=== PATIENT | male | born 1945 | race Caucasian/White ===

== ENCOUNTER 2016-04-10 11:22 | Day surgery (SDC) | payer OTHER ==
[2016-04-03 09:55] VITALS: BMI 21.0
--- NOTE | 2016-04-03 10:35 | PAT Medication Instructions ---
Service Date Apr 03, 2016. Current Home Medication List Amlodipine (Norvasc), 10 MG PO QAM Aspirin (Aspirin Ec), 81 MG PO NOON B-Complex W/ C & Folic Acid (Dialyvite 800), 1 TAB PO QAM Doxazosin Mesylate (Cardura), 4 MG PO HS Enalapril (Vasotec), 20 MG PO BID Folic Acid (Folvite), 1 MG PO QAM Pantoprazole (Protonix), 20 MG PO QAM Medication Instructions For Your Scheduled Surgery - Check with surgeon for instructions: Aspirin (Aspirin Ec), 81 MG PO NOON - Hold the following medications the morning of surgery: Folic Acid (Folvite), 1 MG PO QAM Enalapril (Vasotec), 20 MG PO BID B-Complex W/ C & Folic Acid (Dialyvite 800), 1 TAB PO QAM - Take the following medications the morning of surgery with a sip of water: Pantoprazole (Protonix), 20 MG PO QAM Amlodipine (Norvasc), 10 MG PO QAM - Hold the following medications as scheduled the night before surgery: Enalapril (Vasotec), 20 MG PO BID - Take the following medications as scheduled the night before surgery: Doxazosin Mesylate (Cardura), 4 MG PO HS If you have any questions please call us at [phone] (Jayla Cantu PA-C ) or [phone] or [phone]
[2016-04-03 11:32] LABS: BASO % 0.3 %; BASO ABS # 0.01 K/uL (0-0.2); EOS % 3.6 %; HEMATOCRIT 21.5 % (42-52); IG% 0.3 %; LYMPH % 23.9 %; MEAN CELL VOLUME 89.2 fL (80-100); MEAN CORPUSCULAR HEMOGLOBIN 30.3 pg (25-34); NEUT % 62.9 %; PLATELET COUNT 116 K/uL (130-400); RED BLOOD COUNT 2.41 M/uL (4.7-6.1); WHITE BLOOD COUNT 3.35 K/uL (4.8-10.8)
--- NOTE | 2016-04-03 11:36 | DIAGNOSTIC IMAGING REPORT ---
TWO VIEW CHEST CLINICAL HISTORY: Preoperative examination. FINDINGS: PA and lateral chest radiographs are obtained. No prior studies are available for comparison at the time of dictation. A right-sided central venous catheter is in place. The tip projects over the cavoatrial junction. Surgical clips project over the left apex. The heart is enlarged and there is atherosclerotic calcification of the thoracic aorta. The pulmonary vasculature is noncongested. Emphysema is suspected. Interstitial thickening is nonspecific. A trace right pleural effusion is noted. The right lung is otherwise grossly clear. There is volume loss in the left lung, with significant parenchymal abnormality seen in the left perihilar region and left upper lobe. There is associated architectural distortion. Pleural fluid is seen at the left lung base. There is no pneumothorax. The skeletal structures are osteopenic. Mild degenerative change is noted throughout the thoracic spine. IMPRESSION: 1. Cardiomegaly and emphysema. There is no radiographic evidence of congestive failure. 2. There is significant parenchymal abnormality identified in the left perihilar region and left upper lobe with associated volume loss and architectural distortion. This is of indeterminant chronicity. This could be related to previous surgery, infection, and/or neoplasm. Correlation with the patient's medical history and any prior imaging studies will be essential. 3. There are small pleural effusions, left larger than right. Electronically signed by: Shayan Chin M.D. 04/03/2016 11:35 AM
[2016-04-03 11:40] LABS: PARTIAL THROMBOPLASTIN RATIO 0.9; PROTHROMBIN TIME (PATIENT) 10.7 SECONDS (9.0-12.0)
[2016-04-03 11:52] LABS: ACANTHOCYTES 1+; COMPLETE YES
[2016-04-03 12:20] LABS: CALCIUM 7.9 mg/dl (8.5-10.1); CREATININE 5.3 mg/dl (0.60-1.40); POTASSIUM 4.8 mmol/L (3.5-5.1)
[~2016-04-10] VITALS: Ht 182.9 cm; Wt 72.1 kg
--- NOTE | 2016-04-10 06:21 | History and Physical ---
History & Physical CC: End stage renal disease HPI: Mr. Jean-Baptiste is a 70-year-old gentleman who is now on dialysis and in the need of a permanent fistula. He has a PermCath in place in the right internal jugular vein. He has had multiple use of the veins in his both for IV blood draws and chemotherapy. He also had an Infusaport which was placed on the right side of his chest. It is unknown if it was subclavian or internal jugular. He is left-handed. ALLERGIES: He has no upper extremity claudication. ALLERGIES: None known. MEDICATIONS: Amlodipine, aspirin, Cardura, enalapril, folic acid, Protonix and Unagel. PAST MEDICAL HISTORY: Positive for hypertension, non-small cell lung cancer, myelodysplastic syndrome, bleeding ulcer, anemia, BPH and end-stage renal disease. PAST SURGICAL HISTORY: Fusiform insertion. FAMILY HISTORY: Noncontributory. SOCIAL HISTORY: He smoked for 30 years, 1-1/2 packs a day and he quit in 2012. REVIEW OF SYSTEMS: Ten systems were asked. His only positive complaint was prostate problems. PHYSICAL EXAMINATION: The patient is awake, oriented x3. He is on the thin side. He is in no apparent distress. His blood pressure is 138/60 in the left , 134/60 in the right. Head and neck within normal limits, no carotid bruits. Lungs are clear. The heart had a regular rate and rhythm. Abdominal exam is benign. No aneurysmal dilatation was appreciated. Vascular exam was radials, carotids, temporal arteries +2 bilaterally. Femorals are +2 bilaterally. There is normal hair growth on the extremities and there is good capillary refill in both feet. There are no ulcerations of any of his extremities or ischemic changes. Neurologic exam is grossly intact. IMPRESSION: End-stage renal disease. PLAN AND RECOMMENDATIONS: Patient is admitted for left wrist fistula possible basilic vein fistula creation. I have discussed the risks options and benefits of the procedure with the patient. The patient understands the risks options and benefits and agrees to the procedure.
[~2016-04-10 11:22] MED LIST: AMLO-114 PO; ASPI81TA28 PO; ATROPINE SULFATE 0.1 MG/ML 5ML SYR IV PRN; B-CO800T2 PO; CEFAZOLIN 1000MG/55 ML D5W IV SCH; DOXA4TAB2 PO; ENAL10TA88 PO; EpHEDrine SULFATE INJ 50 MG/ML AMP IV PRN; FENTANYL CITRATE INJ 50 MCG/1 ML 2 ML VIAL IV PRN; FOLI1TAB8 PO; ONDANSETRON INJ 2 MG/ML 2 ML VIAL IV PRN; PRT/20 PO; SODIUM CHLORIDE 0.9% 1000ML 1,000 ML IV SCH
[2016-04-10] MEDS ORDERED: PROPOFOL IV EMULSION 10 MG/ML 20 ML VIAL IV ONE (11:30)
[2016-04-10] MEDS ORDERED: FENTANYL CITRATE INJ 50 MCG/1 ML 2 ML VIAL ONE (11:31)
[2016-04-10 11:35] VITALS: BP 181/65; PULSE 77; TEMP 36.7; O2SAT 95; Ht 182.9 cm; Wt 72.1 kg
--- NOTE | 2016-04-10 11:44 | History & Physical Bridge Note ---
H&P Re-Evaluation Bridge Note: I have examined the patient, reviewed the History & Physical and in the interval since the performance of the History & Physical I have noted the following changes of clinical significance: No changes noted
[2016-04-10 12:32] LABS: BUN/CREATININE RATIO 6.4 (10-20); CALCIUM 7.8 mg/dl (8.5-10.1); CREATININE 5.3 mg/dl (0.60-1.40); POTASSIUM 4.2 mmol/L (3.5-5.1)
--- NOTE | 2016-04-10 13:58 | [facility] Post Operative Brief Note ---
Immediate Operative Summary Operative Date Apr 10, 2016. Pre-Operative Diagnosis End-Stage Renal Disease Post-Operative Diagnosis Same as preoperative Procedure(s) Performed Left Wrist Cephalic Vein Arteriovenous Fistula Creation Surgeon Dr. Daniel Meek Seismic Interpreter Surgeon(s) Suellen Ribeiro PA-C Estimated Blood Loss 10ml Findings good thrill Specimens None per surgeon Anesthesia MAC Complication(s) None Disposition Recovery Room / PACU
[2016-04-10] MEDS ORDERED: OXYC-57 PO (14:00)
--- NOTE | 2016-04-10 14:01 | Discharge Instructions ---
Discharge Instructions Visit Reason for Visit: End Stage Renal Disease Discharge Discharge Diagnosis / Problem: End stage renal disease on dialysis Discharge Goals Goal(s): Therapeutic intervention Activity Recommendations Activity Limitations: per Instructions/Follow-up section Anesthesia . Post Anesthesia Instructions: If you have had General Anesthesia or IV Sedation: * Do not drive today. * Resume driving when surgeon permits. * Do not make important decisions or sign legal documents today. * Call surgeon for: 1. Temperature elevations greater than 101 degrees F. 2. Uncontrollable pain. 3. Excessive bleeding. 4. Persistent nausea and vomiting. 5. Medication intolerance (nausea, vomiting or rash). * For nausea and vomiting use only clear liquids such as: tea, soda, bouillon until nausea subsides, then gradually increase diet as tolerated. * If you have any concerns or questions, call your surgeon's office. If physician is unavailable and it is an emergency, call 911 or go to the nearest emergency room. . Instructions / Follow-Up Instructions / Follow-Up Call [phone] to schedule a follow up appointment if one not already scheduled. ACTIVITY RECOMMENDATIONS: See Above SPECIAL CARE INSTRUCTIONS: Call your doctor if: * Temperature above 101 degrees * Pain not relieved by pain medicine ordered * There is increased drainage or redness from any incision * You have any unanswered questions or concerns. Diet Recommendations Recommended Home Diet: resume previous diet Procedures Procedures Performed: Left Wrist Cephalic Vein Arteriovenous Fistula Creation Pending Studies Studies pending at discharge: no Medical Emergencies . Who to Call and When: Medical Emergencies: If at any time you feel your situation is an emergency, please call 911 immediately. . Non-Emergent Contact Non-Emergency issues call your: Surgeon . . "Provider Documentation" section prepared by Daniel Meek.
[2016-04-10] MEDS ORDERED: HEPARIN SOD (PORCINE) 1000 UNIT/ML 10 ML VIAL FLUSH ONE (14:14)
[2016-04-10] MEDS ORDERED: MIX: 0.5% BUPIVACAINE W/EPI 1:200,000+1%LIDO 50:50 INJ ONE (14:14)
--- NOTE | 2016-04-10 14:18 | OPERATIVE REPORT ---
DATE OF OPERATION: 04/10/2016 PREOPERATIVE DIAGNOSIS: End-stage renal disease on dialysis. POSTOPERATIVE DIAGNOSIS: Same. PROCEDURE: Left wrist AV fistula creation using cephalic vein. SURGEON: Dr. Meek. HOSPITAL NURSE LIAISON: Suellen Castaneda PA-C. ANESTHETIC: MAC. PROCEDURE INDICATIONS: The patient is a 71-year-old gentleman with end-stage renal disease on dialysis. He is in need of an access. He was found to have a good basilic vein in the left arm and possibly a cephalic vein at the wrist. We recommended a left wrist AV fistula unless the vein was not usable. Then an antecubital basilic vein AV fistula will be created. He understood the risks, options and benefits and agreed to have this procedure. DESCRIPTION OF PROCEDURE: The patient was taken to operating room and placed in supine position. After the left arm was prepped and draped in a sterile manner, local anesthetic was administered. Longitudinal incision was made along the cephalic vein at the left wrist slightly higher than a normal incision at the very distal end. Cephalic vein was identified. It was of good caliber at that site. More concerning was the mid forearm. We did ligated distally and divided and passed the #3 Alannah up. The #3 Alannah was inflated and came down very easily throughout the entire cephalic vein in the forearm. It was decided then to do the anastomosis. The radial artery was identified at that level. It was approximately 4 fingerbreadths above the wrist crease. The radial artery was then clamped proximally and distally. Longitudinal arteriotomy was then made. The cephalic vein was beveled and end-to-side anastomosis was accomplished. This was done with a running 7-0 Prolene suture in the usual vascular fashion. Prior to completing the closure, backbleeding and forward bleeding was allowed to occur. Final few sutures were placed and securely tied. Clamps were then removed. Excellent flow was seen. There was a palpable thrill in the fistula at the end of the procedure. Adequate hemostasis was noted of the wound. The vein actually dilated up nicely. There were good signals heard of flow through the fistula all the way up through to the antecubital area. The wound was closed in the usual fashion, running 3-0 Vicryl subcutaneous layer and running 4-0 Vicryl subcuticular suture and Dermabond for a dressing. The patient left the operating room in satisfactory condition having tolerated the procedure well. Suellen Castaneda assisted due to lack of resident availability. I attest to the content of the Intraoperative Record and any orders documented therein. Any exceptio ns are noted below.
--- NOTE | 2016-04-10 14:34 | Anesthesiology Progress Note ---
Anesthesia Post Op Note Date & Time Apr 10, 2016 at 14:34 Vital Signs Pain Intensity: 0 Vital Signs Past 12 Hours Date Time Temp Pulse Resp B/P Pulse Ox O2 Delivery O2 Flow Rate FiO2 04/10/16 14:25 62 18 150/59 96 Room Air 04/10/16 14:18 36.7 74 18 155/62 96 Room Air 04/10/16 11:35 36.7 77 20 181/65 95 Room Air Notes Mental Status: alert / awake / arousable, participated in evaluation Pt Amnestic to Procedure: Yes Nausea / Vomiting: adequately controlled Pain: adequately controlled Airway Patency, RR, SpO2: stable & adequate BP & HR: stable & adequate Hydration State: stable & adequate Anesthetic Complications: no major complications apparent
[2016-04-10 14:45] VITALS: BP 160/60; PULSE 63; TEMP 36.7; O2SAT 96
--- NOTE | 2016-04-10 15:35 | Progress Note ---
Progress Note I assisted Dr Meek with Daniel Jean-Baptiste's Left Wrist Cephalic Vein Arteriovenous Fistula Creation on 04/10/16, d/t lack of resident availability.
[2016-09-13] MEDS ORDERED: ATV/1 PO (06:07)
== END 2016-04-10 15:30 | disposition home or self-care (01) ==
LOC: C.ACU 11:22
PROVIDERS: ATTEND Surgery Vascular Surgery
DX: N18.6 End stage renal disease (principal); N40.0 Benign prostatic hyperplasia without lower urinary tract symptoms; I12.0 Hypertensive chronic kidney disease with stage 5 chronic kidney disease or end stage renal disease; Z85.118 Personal history of other malignant neoplasm of bronchus and lung; Z99.2 Dependence on renal dialysis; Z79.82 Long term (current) use of aspirin; Z87.891 Personal history of nicotine dependence

== ENCOUNTER → 2016-09-13 | Day surgery (SDC) | payer OTHER ==
[~2016-09-13] VITALS: Ht 180.3 cm; Wt 66.0 kg
[~2016-09-13] MED LIST changes: -ATROPINE SULFATE 0.1 MG/ML 5ML SYR IV PRN; +ATV/1 PO; +D5W AND 1/4NSS 1000 ML IV SCH; -EpHEDrine SULFATE INJ 50 MG/ML AMP IV PRN; +FENTANYL CITRATE INJ 50 MCG/1 ML 2 ML VIAL IV ONE; -FENTANYL CITRATE INJ 50 MCG/1 ML 2 ML VIAL IV PRN; +FENTANYL CITRATE INJ 50 MCG/1 ML 2 ML VIAL ONE; +FOLI1TAB7 PO; -FOLI1TAB8 PO; +LIDOCAINE HCL 1% 20 ML VIAL INJ ONE; +LIDOCAINE HCL 1% 20 ML VIAL ONE; +MIDAZOLAM HCL 1 MG/ML 2ML VIAL ONE; -ONDANSETRON INJ 2 MG/ML 2 ML VIAL IV PRN; +OXYC-57 PO; +PATIENT'S HEIGHT AND/OR WEIGHT NEEDED SCH; -SODIUM CHLORIDE 0.9% 1000ML 1,000 ML IV SCH
--- NOTE | 2016-09-13 05:58 | History and Physical ---
History & Physical Date of Service Sep 13, 2016. History & Physical CC: Non maturing left arm av fistula HPI: Mr. Jean-Baptiste is a 70-year-old gentleman who had a left wrist av fistula created which is not maturing. Admitted now for a possible BAM procedure and coiling of a large sidebranch. ALLERGIES: He has no upper extremity claudication. ALLERGIES: None known. MEDICATIONS: Amlodipine, aspirin, Cardura, enalapril, folic acid, Protonix and Unagel. PAST MEDICAL HISTORY: Positive for hypertension, non-small cell lung cancer, myelodysplastic syndrome, bleeding ulcer, anemia, BPH and end-stage renal disease. PAST SURGICAL HISTORY: Fusiform insertion. FAMILY HISTORY: Noncontributory. SOCIAL HISTORY: He smoked for 30 years, 1-1/2 packs a day and he quit in 2012. REVIEW OF SYSTEMS: Ten systems were asked. His only positive complaint was prostate problems. PHYSICAL EXAMINATION: The patient is awake, oriented x3. He is on the thin side. He is in no apparent distress. His blood pressure is 138/60 in the left , 134/60 in the right. Head and neck within normal limits, no carotid bruits. Lungs are clear. The heart had a regular rate and rhythm. Abdominal exam is benign. No aneurysmal dilatation was appreciated. Vascular exam was radials, carotids, temporal arteries +2 bilaterally. Femorals are +2 bilaterally. There is normal hair growth on the extremities and there is good capillary refill in both feet. There are no ulcerations of any of his extremities or ischemic changes. Neurologic exam is grossly intact. Good thrill in proximal fistula. IMPRESSION: End-stage renal disease. Non maturing av fistula PLAN AND RECOMMENDATIONS: Patient is admitted for left wrist fistulogram with possible intervention. I have discussed the risks options and benefits of the procedure with the patient. The patient understands the risks options and benefits and agrees to the procedure.
[2016-09-13 06:13] VITALS: BP 173/74; PULSE 76; TEMP 36.9; O2SAT 100; Ht 180.3 cm; Wt 66.0 kg
--- NOTE | 2016-09-13 07:21 | Procedure Note ---
Pre-Mod Sedation Assessment General Date of Moderate Sedation: Sep 13, 2016. Vital Signs: Vital Signs Past 12 Hours Date Time Temp Pulse Resp B/P (MAP) Pulse Ox O2 Delivery O2 Flow Rate FiO2 09/13/16 06:13 36.9 76 18 173/74 (107) 100 Room Air Pre-Sedation Airway Assessment Oral Cavity: Dentures Hx of Sleep Apnea: No Smoking Status: Former Smoker Mallampati Classification: Class I ASA Classification: Class II Notes The planned sedation has been discussed with the patient and consent obtained. I have identified the patient, determined the appropriateness of sedation and have assessed the patient immediately prior to the procedure. All medicine(s) and interventions are by my order.
[2016-09-13 07:23] VITALS: BP 173/74; PULSE 76; TEMP 36.9; O2SAT 100
--- NOTE | 2016-09-13 08:19 | [facility] Post Operative Brief Note ---
Immediate Operative Summary Operative Date Sep 13, 2016. Pre-Operative Diagnosis Non Maturing Fistula Post-Operative Diagnosis Same Procedure(s) Performed Fistulogram, Percutaneous Transluminal Angioplasty Peripheral Venous , Ligation of Side Branch Surgeon Dr. Meek Biometric Technician Surgeon(s) None Estimated Blood Loss 5 Findings good dilatation results Specimens None Anesthesia Local Complication(s) None Disposition
--- NOTE | 2016-09-13 08:21 | Discharge Instructions ---
Discharge Instructions Date of Service Sep 13, 2016. Visit Reason for Visit: Non-Maturing Fistula Discharge Discharge Diagnosis / Problem: Non maturing Arteriovenous fistula Discharge Goals Goal(s): Therapeutic intervention Activity Recommendations Activity Limitations: resume your previous activity Anesthesia . Post Anesthesia Instructions: If you have had General Anesthesia or IV Sedation: * Do not drive today. * Resume driving when surgeon permits. * Do not make important decisions or sign legal documents today. * Call surgeon for: 1. Temperature elevations greater than 101 degrees F. 2. Uncontrollable pain. 3. Excessive bleeding. 4. Persistent nausea and vomiting. 5. Medication intolerance (nausea, vomiting or rash). * For nausea and vomiting use only clear liquids such as: tea, soda, bouillon until nausea subsides, then gradually increase diet as tolerated. * If you have any concerns or questions, call your surgeon's office. If physician is unavailable and it is an emergency, call 911 or go to the nearest emergency room. . Instructions / Follow-Up Instructions / Follow-Up Call [phone] to schedule a follow up appointment if one not already scheduled. SPECIAL CARE INSTRUCTIONS: Medications: * Continue to take your medications as directed. If you have been given a prescription for Plavix, please fill it immediately and take as directed. Incision Care: * Your puncture site may have some bruising and minor swelling for about one week. * You will have a small dressing covering your puncture site. You may remove the dressing after 24 hours and shower. You may let the warm soapy water run over it, but be sure to dry the puncture site well and keep it dry. * DO NOT IMMERSE THE INCISION IN A TUB/POOL/etc. UNTIL HEALED. * Puncture sites should be kept covered with a band-aid until it begins to heal. Restrictions: * Depending on whether you leg or arm was punctured to access the arteries, you will be required to lay flat, hold your arm still, or both, for about 4 hours after the procedure to prevent bleeding. * Limit your activity for the first 48 hours. You may walk and go up and down steps. Avoid excessive bending or movement at the puncture site. Possible Complications: * Excessive Swelling - after blood flow is improved you may notice increased swelling in the lower legs. This is a normal response. This usually depends on the amount of blockages in the leg, how long they have been there prior to your procedure and how much blood flow was restored. Elevating your legs will help to improve this. Please notify our office ([phone] ) if the swelling does not go away after lying in bed overnight. * Infection/Drainage/Bleeding - Drainage or bleeding from the puncture site should be minimal. If you have excessive bleeding or drainage, call our office ([phone]) right away. * Pain - You may experience some mild pain or soreness at your puncture site. If your pain does not improve, please contact our office ([phone]). Call your doctor and seek emergent treatment if you develop: * Temperature above 101 degrees * Any fever or chills * Any redness or purulent drainage from the puncture site * Any new dusky/blue colored toes or feet with coolness or sharp or aching pain. SKIN IRRITATION: * You may experience some redness and/or swelling in the area where radiation was administered. If any skin irritation occurs, please contact your family physician. FOLLOW UP VISIT: Keep any scheduled doctor appointments. Diet Recommendations Recommended Home Diet: resume previous diet Procedures Procedures Performed: Fistulogram, Percutaneous Transluminal Angioplasty Peripheral Venous , Ligation of Side Branch Pending Studies Studies pending at discharge: no Medical Emergencies . Who to Call and When: Medical Emergencies: If at any time you feel your situation is an emergency, please call 911 immediately. . Non-Emergent Contact Non-Emergency issues call your: Surgeon . . "Provider Documentation" section prepared by Daniel Meek. .
[2016-09-13 08:35] VITALS: BP 163/66; TEMP 37; O2SAT 99
--- NOTE | 2016-09-13 08:49 | DIAGNOSTIC IMAGING REPORT ---
DATE OF PROCEDURE: 09/13/2016 DATE OF PROCEDURE: 09/13/2016. PREOPERATIVE DIAGNOSIS: Non-maturing left wrist arteriovenous fistula. POSTOPERATIVE DIAGNOSIS: Same. PROCEDURES: 1. Fistulogram, left forearm fistula. 2. Balloon angioplasty peripheral venous "BAM procedure". 3. Ligation of side branch of the fistula. SURGEON: Dr. Meek. ANESTHETIC: Local. PROCEDURE INDICATIONS: The patient is a 71-year-old gentleman with a left wrist AV fistula that was not maturing. He does have a large side branch which is feeding the collateral. This is having a significant amount of flow through it. We recommended a BAM procedure due to the narrowing in the cephalic vein in the forearm. He understood the risks, options and benefits and agreed to have this procedure. PROCEDURE: The patient was taken to the angio suite and placed in supine position. After left arm was prepped and draped in a sterile manner, local anesthetic was administered. A puncture was then made using micropuncture technique in the AV fistula just beyond the arterial anastomosis. The micropuncture catheter was inserted. Fistulogram revealed a narrowing in multiple segments along the vein in the mid forearm. The vein dilated up nicely beyond there. It appeared to be a beaded appearance. There was a side branch present which had a lot of flow going through it. The proximal portion of the origin of the side branch had a very small lumen. At this point, the sheath was exchanged to a 5-[place] sheath. A 5 x 100 balloon was used and the vein was dilated. This was done along the entire length of the narrowing. After this was completed, the vein had a smooth appearance with less than 5% residual narrowings. Being that we had good results I decided to ligate the fistula. Local anesthetic was administered over the vein. A skin incision was made longitudinally. The vein was then ligated with silk sutures. Once this was done, adequate hemostasis was seen. The wound was then closed with running 4-0 subcuticular Vicryl suture and Dermabond for a dressing. Another fistulogram was then repeated which showed excellent flow through the new fistula. There was a good thrill in the fistula much better than before. The sheath was then pulled, pressure was applied. Adequate hemostasis was obtained. Sterile dressings were then applied to the wound. The patient left the angio suite in good condition and tolerated the procedure well.
[2016-09-13 09:05] VITALS: BP 163/73; O2SAT 99
[2016-09-13 09:20] VITALS: BP 164/74; PULSE 75; TEMP 36.7; O2SAT 99
== END | disposition home or self-care (01) ==
LOC: C.ACU 05:35
PROVIDERS: ATTEND Surgery Vascular Surgery
DX: T82.898A Other specified complication of vascular prosthetic devices, implants and grafts, initial encounter (principal); Y83.2 Surgical operation with anastomosis, bypass or graft as the cause of abnormal reaction of the patient, or of later complication, without mention of misadventure at the time of the procedure; N18.6 End stage renal disease; I12.0 Hypertensive chronic kidney disease with stage 5 chronic kidney disease or end stage renal disease; Z85.118 Personal history of other malignant neoplasm of bronchus and lung; Z87.891 Personal history of nicotine dependence

== ENCOUNTER 2016-12-31 06:02 | Day surgery (SDC) | payer OTHER ==
[~2016-12-31] VITALS: Ht 180.3 cm; Wt 69.5 kg
[~2016-12-31 06:02] MED LIST changes: -FENTANYL CITRATE INJ 50 MCG/1 ML 2 ML VIAL IV ONE; -FENTANYL CITRATE INJ 50 MCG/1 ML 2 ML VIAL ONE; -LIDOCAINE HCL 1% 20 ML VIAL INJ ONE; -LIDOCAINE HCL 1% 20 ML VIAL ONE; -MIDAZOLAM HCL 1 MG/ML 2ML VIAL ONE; -OXYC-57 PO; -PATIENT'S HEIGHT AND/OR WEIGHT NEEDED SCH; -PRT/20 PO
[2016-12-31 06:45] VITALS: BP 146/68; PULSE 72; TEMP 36.6; O2SAT 96; Ht 180.3 cm; Wt 69.5 kg
[2016-12-31 07:39] VITALS: BP 146/68; PULSE 72; TEMP 36.6; O2SAT 96
--- NOTE | 2016-12-31 07:41 | Procedure Note ---
Pre-Mod Sedation Assessment General Date of Moderate Sedation: Dec 31, 2016. Vital Signs: Vital Signs Past 12 Hours Date Time Temp Pulse Resp B/P (MAP) Pulse Ox O2 Delivery O2 Flow Rate FiO2 12/31/16 06:45 36.6 72 20 146/68 (94) 96 Room Air Pre-Sedation Airway Assessment Oral Cavity: Dentures Smoking Status: Former Smoker Mallampati Classification: Class I ASA Classification: Class III Notes The planned sedation has been discussed with the patient and consent obtained. I have identified the patient, determined the appropriateness of sedation and have assessed the patient immediately prior to the procedure. All medicine(s) and interventions are by my order.
--- NOTE | 2016-12-31 07:41 | History and Physical ---
History & Physical Date of Service Dec 31, 2016. History & Physical CC: Functioning left arm av fistula HPI: Mr. Jean-Baptiste is a 70-year-old gentleman who had a left wrist av fistula created which is not maturing. Admitted now for a possible BAM procedure and coiling of a large sidebranch. ALLERGIES: He has no upper extremity claudication. ALLERGIES: None known. MEDICATIONS: Amlodipine, aspirin, Cardura, enalapril, folic acid, Protonix and Unagel. PAST MEDICAL HISTORY: Positive for hypertension, non-small cell lung cancer, myelodysplastic syndrome, bleeding ulcer, anemia, BPH and end-stage renal disease. PAST SURGICAL HISTORY: Fusiform insertion. FAMILY HISTORY: Noncontributory. SOCIAL HISTORY: He smoked for 30 years, 1-1/2 packs a day and he quit in 2012. REVIEW OF SYSTEMS: Ten systems were asked. His only positive complaint was prostate problems. PHYSICAL EXAMINATION: The patient is awake, oriented x3. He is on the thin side. He is in no apparent distress. His blood pressure is 138/60 in the left , 134/60 in the right. Head and neck within normal limits, no carotid bruits. Lungs are clear. The heart had a regular rate and rhythm. Abdominal exam is benign. No aneurysmal dilatation was appreciated. Vascular exam was radials, carotids, temporal arteries +2 bilaterally. Femorals are +2 bilaterally. There is normal hair growth on the extremities and there is good capillary refill in both feet. There are no ulcerations of any of his extremities or ischemic changes. Neurologic exam is grossly intact. Good thrill in left arm fistula. IMPRESSION: End-stage renal disease. Functioning av fistula PLAN AND RECOMMENDATIONS: Patient is admitted for removal of permcath. I have discussed the risks options and benefits of the procedure with the patient. The patient understands the risks options and benefits and agrees to the procedure.
[2016-12-31] MEDS ORDERED: FENTANYL CITRATE INJ 50 MCG/1 ML 2 ML VIAL ONE (07:47)
[2016-12-31] MEDS ORDERED: MIDAZOLAM HCL 1 MG/ML 2ML VIAL ONE (07:48)
[2016-12-31] MEDS ORDERED: FENTANYL CITRATE INJ 50 MCG/1 ML 2 ML VIAL IV ONE ×2 (08:09)
[2016-12-31] MEDS ORDERED: MIDAZOLAM HCL 1 MG/ML 2ML VIAL IV ONE ×2 (08:09)
[2016-12-31] MEDS ORDERED: LIDOCAINE HCL 1% 20 ML VIAL INJ ONE (08:16)
--- NOTE | 2016-12-31 08:30 | [facility] Operative Report ---
Operative Report Operative Date Dec 31, 2016. Pre-Operative Diagnosis functioning fistula Post-Operative Diagnosis same Procedure(s) Performed Removal Of Perm Catheter, Moderate Concious Sedation [address] Meek Primer Waterproofing Machine Adjuster Surgeon(s) Rosalind Jacobson Fellow Estimated Blood Loss 2 ml Findings catheter and cuff removed Specimens A. explanted perm catheter Anesthesia Local with sedation Complication(s) None Disposition Indications This is a 71-year-old white male who has a functioning fistula in his upper extremity. He is here for PermCath removal. He understood the risks options and benefits and agreed to go ahead with this procedure. Description of Procedure The patient was taken to the angio suite and placed in the supine position. The right side of the neck, chest wall and catheter were prepped and draped in a sterile manner. Local anesthesia was then accomplished. Using sharp and blunt dissection, the cuff of the permcath was freed up from the surrounding fibrous tissue. The permcath and cuff were completely removed. Pressure was then applied and adequate hemostasis was obtained. A sterile dressing was then applied. The patient left the angio suite in good condition and tolerated the procedure well. I attest to the content of the Intraoperative Record and any orders documented therein. Any exceptions are noted below.
--- NOTE | 2016-12-31 08:37 | Procedure Note ---
Post-Moderate Sedation Plan General Date of Moderate Sedation Dec 31, 2016. Vital Signs: Vital Signs Past 12 Hours Date Time Temp Pulse Resp B/P (MAP) Pulse Ox O2 Delivery O2 Flow Rate FiO2 12/31/16 07:39 36.6 72 20 146/68 96 Room Air 12/31/16 06:45 36.6 72 20 146/68 (94) 96 Room Air Review - Discharge Plan Post Moderate Sedation Plan: On clinical assessment, the patient appears to have tolerated the conscious sedation without complications. Patient is recovering as anticipated. Patient will continue to be monitored by nursing and may be discharged when conscious sedation discharge criteria are met.
--- NOTE | 2016-12-31 08:38 | Discharge Instructions ---
Discharge Instructions Date of Service Dec 31, 2016. Visit Reason for Visit: End Stage Renal Disease - Functioning Fistula Discharge Discharge Diagnosis / Problem: Functioning fistula Discharge Goals Goal(s): Therapeutic intervention Activity Recommendations Activity Limitations: resume your previous activity Shower/Bathe: tomorrow Anesthesia . Post Anesthesia Instructions: If you have had General Anesthesia or IV Sedation: * Do not drive today. * Resume driving when surgeon permits. * Do not make important decisions or sign legal documents today. * Call surgeon for: 1. Temperature elevations greater than 101 degrees F. 2. Uncontrollable pain. 3. Excessive bleeding. 4. Persistent nausea and vomiting. 5. Medication intolerance (nausea, vomiting or rash). * For nausea and vomiting use only clear liquids such as: tea, soda, bouillon until nausea subsides, then gradually increase diet as tolerated. * If you have any concerns or questions, call your surgeon's office. If physician is unavailable and it is an emergency, call 911 or go to the nearest emergency room. . Instructions / Follow-Up Instructions / Follow-Up Call [phone] with any questions or concerns. SPECIAL CARE INSTRUCTIONS: Medications: * Continue to take your medications as directed. If you have been given a prescription for Plavix, please fill it immediately and take as directed. Incision Care: * Your puncture site may have some bruising and minor swelling for about one week. * You will have a small dressing covering your puncture site. You may remove the dressing after 24 hours and shower. You may let the warm soapy water run over it, but be sure to dry the puncture site well and keep it dry. * DO NOT IMMERSE THE INCISION IN A TUB/POOL/etc. UNTIL HEALED. * Puncture sites should be kept covered with a band-aid until it begins to heal. Restrictions: * Depending on whether you leg or arm was punctured to access the arteries, you will be required to lay flat, hold your arm still, or both, for about 4 hours after the procedure to prevent bleeding. * Limit your activity for the first 48 hours. You may walk and go up and down steps. Avoid excessive bending or movement at the puncture site. Possible Complications: * Excessive Swelling - after blood flow is improved you may notice increased swelling in the lower legs. This is a normal response. This usually depends on the amount of blockages in the leg, how long they have been there prior to your procedure and how much blood flow was restored. Elevating your legs will help to improve this. Please notify our office ([phone] ) if the swelling does not go away after lying in bed overnight. * Infection/Drainage/Bleeding - Drainage or bleeding from the puncture site should be minimal. If you have excessive bleeding or drainage, call our office ([phone]) right away. * Pain - You may experience some mild pain or soreness at your puncture site. If your pain does not improve, please contact our office ([phone]). Call your doctor and seek emergent treatment if you develop: * Temperature above 101 degrees * Any fever or chills * Any redness or purulent drainage from the puncture site * Any new dusky/blue colored toes or feet with coolness or sharp or aching pain. SKIN IRRITATION: * You may experience some redness and/or swelling in the area where radiation was administered. If any skin irritation occurs, please contact your family physician. FOLLOW UP VISIT: Keep any scheduled doctor appointments. Diet Recommendations Recommended Home Diet: resume previous diet Procedures Procedures Performed: Removal Of Perm Catheter, Moderate Concious Sedation 0809 to 0834 Pending Studies Studies pending at discharge: no Medical Emergencies . Who to Call and When: Medical Emergencies: If at any time you feel your situation is an emergency, please call 911 immediately. . Non-Emergent Contact Non-Emergency issues call your: Surgeon . . "Provider Documentation" section prepared by Daniel Meek. .
[2016-12-31 08:43] VITALS: BP 124/54; PULSE 63; TEMP 36.4; O2SAT 93
[2016-12-31 09:00] VITALS: BP 125/58; PULSE 72; O2SAT 94
[2016-12-31 09:15] VITALS: BP 131/57; PULSE 74; TEMP 37.1; O2SAT 96
[2016-12-31 09:30] VITALS: BP 136/57; PULSE 77; TEMP 37.1; O2SAT 95
== END 2016-12-31 09:41 | disposition home or self-care (01) ==
LOC: C.ACU 06:02
PROVIDERS: ATTEND Surgery Vascular Surgery
DX: Z45.2 Encounter for adjustment and management of vascular access device (principal); N18.6 End stage renal disease; Z87.891 Personal history of nicotine dependence

== ENCOUNTER 2017-06-19 11:09 | Day surgery (SDC) | payer OTHER ==
[~2017-06-19] VITALS: Ht 180.3 cm; Wt 67.0 kg
--- NOTE | 2017-06-19 09:27 | History and Physical ---
History & Physical Date of Service Jun 19, 2017. History & Physical CC: Malfunctioning left arm av fistula HPI: Mr. Jean-Baptiste is a 70-year-old gentleman who had a left wrist av fistula created which is not running well. He had a BAM procedure and coiling of a large sidebranch. Now here for a repeat fistulogram for malfunctioning fistula. ALLERGIES: He has no upper extremity claudication. ALLERGIES: None known. MEDICATIONS: Amlodipine, aspirin, Cardura, enalapril, folic acid, Protonix and Unagel. PAST MEDICAL HISTORY: Positive for hypertension, non-small cell lung cancer, myelodysplastic syndrome, bleeding ulcer, anemia, BPH and end-stage renal disease. PAST SURGICAL HISTORY: Fusiform insertion. FAMILY HISTORY: Noncontributory. SOCIAL HISTORY: He smoked for 30 years, 1-1/2 packs a day and he quit in 2012. REVIEW OF SYSTEMS: Ten systems were asked. His only positive complaint was prostate problems. PHYSICAL EXAMINATION: The patient is awake, oriented x3. He is on the thin side. He is in no apparent distress. His blood pressure is 138/60 in the left , 134/60 in the right. Head and neck within normal limits, no carotid bruits. Lungs are clear. The heart had a regular rate and rhythm. Abdominal exam is benign. No aneurysmal dilatation was appreciated. Vascular exam was radials, carotids, temporal arteries +2 bilaterally. Femorals are +2 bilaterally. There is normal hair growth on the extremities and there is good capillary refill in both feet. There are no ulcerations of any of his extremities or ischemic changes. Neurologic exam is grossly intact. Good thrill in left arm fistula. IMPRESSION: End-stage renal disease. Malfunctioning av fistula PLAN AND RECOMMENDATIONS: Patient is admitted for a fistulogram with possible intervention. I have discussed the risks options and benefits of the procedure with the patient. The patient understands the risks options and benefits and agrees to the procedure.
[~2017-06-19 11:09] MED LIST changes: +CEFAZOLIN 1000MG IV PUSH 7.5 ML IV SCH; -CEFAZOLIN 1000MG/55 ML D5W IV SCH; +D5W AND 1/4NSS 1,000 ML IV SCH; -D5W AND 1/4NSS 1000 ML IV SCH; -FOLI1TAB7 PO; +FOLI1TAB8 PO
[2017-06-19] MEDS ORDERED: PRT/20 PO (11:45)
[2017-06-19] MEDS ORDERED: CITA10TA4 PO (11:45)
[2017-06-19] MEDS ORDERED: MIRT15TA2 PO (11:45)
[2017-06-19 11:50] VITALS: BP 163/72; TEMP 36.4; O2SAT 98; Ht 180.3 cm; Wt 67.0 kg
--- NOTE | 2017-06-19 12:59 | Pre Sedation Assessment ---
Pre Sedation Assessment General Date of Sedation: Jun 19, 2017. Vital Signs Past 12 Hours Date Time Temp Pulse Resp B/P (MAP) Pulse Ox O2 Delivery O2 Flow Rate FiO2 06/19/17 11:50 36.4 22 163/72 (102) 98 Room Air Review Cardiovascular: regular rate, rhythm Lungs: lungs clear Pre-Sedation Airway Assessment Smoking Status: Former Smoker Hx of Sleep Apnea: No Short Thick Neck: No Thyro-mental Distance: > 3 Finger Breadths Oral Cavity: Dental Abnormalities Mallampati Classification: Class I ASA Classification: Class III NPO Status Date of Last Intake of Fluids: Jun 18, 2017 Time of Last Intake of Fluids: 2129 Date of Last Intake of Solids: Jun 19, 2017 Time of Last Intake of Solids: 0830 Procedure Planning Contraindications for Sedation: None Current Medications Reviewed: Yes Notes The planned sedation has been discussed with the patient. Informed Consent was obtained. I have identified the patient, determined the appropriateness of sedation and have assessed the patient immediately prior to the procedure. All medicine(s) and interventions are by my order.
[2017-06-19] MEDS ORDERED: FENTANYL CITRATE INJ 50 MCG/1 ML 2 ML VIAL ONE (13:43)
[2017-06-19] MEDS ORDERED: MIDAZOLAM HCL 1 MG/ML 2ML VIAL ONE (13:44)
--- NOTE | 2017-06-19 14:23 | [facility] Post Operative Brief Note ---
Immediate Operative Summary Operative Date Jun 19, 2017. Pre-Operative Diagnosis Malfunctioning Left Arm Fistula Post-Operative Diagnosis Venous stenosis of fistula Procedure(s) Performed Fistulogram left arm, SAP DATA ANALYST venous Surgeon Dr. Daniel Meek Relationship Banker Surgeon(s) Dr. Jacobson, Fellow Estimated Blood Loss 4cc Findings Consistent with Post-Op Diagnosis Specimens None per surgeon Drains None Complication(s) none Disposition Accompanied Pt To Recover: no Disposition:
--- NOTE | 2017-06-19 14:24 | Discharge Instructions ---
Discharge Instructions Date of Service Jun 19, 2017. Visit Reason for Visit: End Stage Renal Disease - On Hemodialysis Discharge Discharge Diagnosis / Problem: Malfunctioning fistula left arm Discharge Goals Goal(s): Therapeutic intervention Activity Recommendations Activity Limitations: resume your previous activity Anesthesia . Post Anesthesia Instructions: If you have had General Anesthesia or IV Sedation: * Do not drive today. * Resume driving when surgeon permits. * Do not make important decisions or sign legal documents today. * Call surgeon for: 1. Temperature elevations greater than 101 degrees F. 2. Uncontrollable pain. 3. Excessive bleeding. 4. Persistent nausea and vomiting. 5. Medication intolerance (nausea, vomiting or rash). * For nausea and vomiting use only clear liquids such as: tea, soda, bouillon until nausea subsides, then gradually increase diet as tolerated. * If you have any concerns or questions, call your surgeon's office. If physician is unavailable and it is an emergency, call 911 or go to the nearest emergency room. . Instructions / Follow-Up Instructions / Follow-Up Call [phone] to schedule a follow up appointment if one not already scheduled. SPECIAL CARE INSTRUCTIONS: Medications: * Continue to take your medications as directed. If you have been given a prescription for Plavix, please fill it immediately and take as directed. Incision Care: * Your puncture site may have some bruising and minor swelling for about one week. * You will have a small dressing covering your puncture site. You may remove the dressing after 24 hours and shower. You may let the warm soapy water run over it, but be sure to dry the puncture site well and keep it dry. * DO NOT IMMERSE THE INCISION IN A TUB/POOL/etc. UNTIL HEALED. * Puncture sites should be kept covered with a band-aid until it begins to heal. Restrictions: * Depending on whether you leg or arm was punctured to access the arteries, you will be required to lay flat, hold your arm still, or both, for about 4 hours after the procedure to prevent bleeding. * Limit your activity for the first 48 hours. You may walk and go up and down steps. Avoid excessive bending or movement at the puncture site. Possible Complications: * Excessive Swelling - after blood flow is improved you may notice increased swelling in the lower legs. This is a normal response. This usually depends on the amount of blockages in the leg, how long they have been there prior to your procedure and how much blood flow was restored. Elevating your legs will help to improve this. Please notify our office ([phone] ) if the swelling does not go away after lying in bed overnight. * Infection/Drainage/Bleeding - Drainage or bleeding from the puncture site should be minimal. If you have excessive bleeding or drainage, call our office ([phone]) right away. * Pain - You may experience some mild pain or soreness at your puncture site. If your pain does not improve, please contact our office ([phone]). Call your doctor and seek emergent treatment if you develop: * Temperature above 101 degrees * Any fever or chills * Any redness or purulent drainage from the puncture site * Any new dusky/blue colored toes or feet with coolness or sharp or aching pain. SKIN IRRITATION: * You may experience some redness and/or swelling in the area where radiation was administered. If any skin irritation occurs, please contact your family physician. FOLLOW UP VISIT: Keep any scheduled doctor appointments. Diet Recommendations Recommended Home Diet: resume previous diet Procedures Procedures Performed: Fistulogram left arm, BARKER PEELER venous Pending Studies Studies pending at discharge: no Medical Emergencies . Who to Call and When: Medical Emergencies: If at any time you feel your situation is an emergency, please call 911 immediately. . Non-Emergent Contact Non-Emergency issues call your: Surgeon . . "Provider Documentation" section prepared by Daniel Meek. .
[2017-06-19 14:40] VITALS: BP_SYST 100; BP_SYST 149; BP_DIAS 59; BP_DIAS 72; PULSE 67; PULSE 72; TEMP 36.6; O2SAT 94; O2SAT 95
[2017-06-19] MEDS ORDERED: LIDOCAINE HCL 1% 20 ML VIAL INJ ONE (14:42)
[2017-06-19] MEDS ORDERED: OPTIRAY 300 IV ONE (14:42)
[2017-06-19] MEDS ORDERED: FENTANYL CITRATE INJ 50 MCG/1 ML 2 ML VIAL IV ONE (14:42)
--- NOTE | 2017-06-19 14:56 | DIAGNOSTIC IMAGING REPORT ---
DATE OF PROCEDURE: 06/19/2017 PREOPERATIVE DIAGNOSIS: Malfunctioning left forearm arteriovenous fistula. POSTOPERATIVE DIAGNOSIS: Stenosis of the cephalic vein fistula. PROCEDURE PERFORMED: 1. Fistulogram of the left upper extremity fistula. 2. Angioplasty of proximal left cephalic vein fistula. SURGEON: Dr. Daniel Meek. INDUSTRIAL ENGINEERING DIRECTOR: Dr. Rosalind Jacobson. ESTIMATED BLOOD LOSS: 4. ANESTHESIA: Local plus pain control. CONTRAST: 65 mL. COMPLICATIONS: A 5 mm angioplasty balloon would not deflate requiring puncture and removal. CONDITION: Stable to PACU. INDICATIONS: Mr. Daniel Jean-Baptiste is a 72-year-old male who had a left forearm radiocephalic fistula placed and underwent a BAM procedure approximately 1 year ago. He started to have high pressures and prolonged bleeding times and he was advised of the risks and benefits of undergoing fistulogram and agreed to undergo the above procedure. DESCRIPTION OF PROCEDURE: The patient was brought to the operative suite. He was prepped and draped in usual fashion. A timeout occurred. Lidocaine was instilled in his skin over his proximal fistula. A micropuncture needle was used to gain access and a micropuncture wire was passed and the fistula. A micropuncture sheath was then placed and a fistulogram was obtained. This showed stenosis in the proximal fistula just distal to the catheter and then another stenosis for approximately 8 cm distal to the previous stenosis. Micropuncture sheath was then exchanged for a 5-E[place] sheath. Then an angled Glidewire was advanced into the fistula. A 5 x 60 balloon was then passed to the distal stenosis. This was inflated. During deflation, the balloon would not come down. The use of a syringe also did not result in deflation of the balloon. Therefore, it was decided to instill lidocaine over the balloon and used a micropuncture needle to puncture the balloon allowing it to be recaptured. Once the balloon and wire were removed, fistulogram was obtained showing improvement of stenosis. No active extravasation Wire was then replaced and a 6 x 40 x 80 balloon was then used to dilate the distal stenosis. This was brought down and inflated over the proximal stenosis. A completion angiogram was performed showing resolution of stenosis and a decrease in number collaterals filled. At this time, it was decided to end the procedure. The sheath and the wire were removed. Pressure was held and hemostasis was obtained. The patient was then transferred to the PACU in stable condition. Dr. Daniel Meek was present for the entire procedure. [facility]ANA
[2017-06-19 15:10] VITALS: BP 149/72; PULSE 67; TEMP 36.6; O2SAT 94
== END 2017-06-19 15:15 | disposition home or self-care (01) ==
LOC: C.ACU 11:09
PROVIDERS: ATTEND Surgery Vascular Surgery
DX: T82.898A Other specified complication of vascular prosthetic devices, implants and grafts, initial encounter (principal); I12.0 Hypertensive chronic kidney disease with stage 5 chronic kidney disease or end stage renal disease; N18.6 End stage renal disease; Z87.891 Personal history of nicotine dependence; C34.90 Malignant neoplasm of unspecified part of unspecified bronchus or lung; D46.9 Myelodysplastic syndrome, unspecified; N40.0 Benign prostatic hyperplasia without lower urinary tract symptoms; Z99.2 Dependence on renal dialysis